=== PATIENT | male | born 1945 | race Caucasian/White ===

== ENCOUNTER → 2019-10-16 | Outpatient (CLI) | payer MEDICARE ==
[~2019-10-16] MED LIST: ASPIR 8181 MG PO; ASPIRIN ENTERI325 MG PO; DIGOXIN125 MCG PO; FUROSEMIDE40 MG PO; LEVAQUIN500 MG PO; LEVEMIR100 UNIT/1 INJ; LEVOCETIRIZINE D5 MG PO; LIPITOR40 MG PO; LISINOPRIL20 MG PO; METOPROLOL TART25 MG PO; NOVOLOG100 UNITS/ INJ; PREVACID 24HR15 MG PO
--- NOTE | 2019-10-16 13:32 | Diagnostic Imaging Report ---
EXAMINATION: SP LUMBAR AP LATERAL 2-3VWS, THORACIC SPINE 2VW INDICATION: Back pain COMPARISON: None FINDINGS: AP and lateral views of the lumbar and thoracic spine were obtained. Thoracic spine: No acute fracture. Vertebral body heights are well-maintained. Alignment is anatomic. Mild diffuse osteopenia. Mild multilevel degenerative changes with disc space narrowing and osteophyte formation. Postoperative findings of prior CABG. Left chest AICD leads partially visualized. Sternotomy wires intact. Lumbar spine: No acute fracture. Vertebral body heights are maintained. Alignment is anatomic. Mild diffuse osteopenia. Moderate multilevel degenerative changes with disc space narrowing and bulky osteophyte formation most notably at L1 to, L3-4, and L4-5. Diffuse atherosclerotic arterial calcifications. IMPRESSION: No compression fracture of the thoracic or lumbar spine. Alignment is anatomic. Mild degenerative changes of the thoracic spine and moderate degenerative changes of the lumbar spine. Mild diffuse osteopenia. Signed by: Lanre Smith MD on 10/16/2019 1:28 PM
== END ==
LOC: RAD 12:23
PROVIDERS: ATTEND Internal Medicine
DX: M54.5 Low back pain (principal); M54.6 Pain in thoracic spine
CPT/HCPCS: 72070; 72100

== ENCOUNTER → 2020-03-03 | Day surgery (SDC) | payer MEDICARE ==
[2020-02-27 09:05] LABS: BASOPHILS # (AUTO) 0.1 (0.0-0.1); EOSINOPHILS # (AUTO) 0.2 (0.0-0.4); EOSINOPHILS % 1.8 % (0.0-6.0); HEMATOCRIT 51.1 % (38.2-49.6); HEMOGLOBIN 16.8 g/dL (14.0-18.0); LYMPHOCYTES # (AUTO) 1.9 (1.0-3.2); LYMPHOCYTES % 21.6 % (18.0-39.1); MEAN CORPUSCULAR HEMOGLOBIN 33.3 pg (28-32); MEAN CORPUSCULAR HGB CONC 32.9 g/dL (31-35); MEAN CORPUSCULAR VOLUME 101.4 fL (81-99); MONOCYTES # (AUTO) 0.9 (0.2-0.8); MONOCYTES % 10.2 % (4.4-11.3); NEUTROPHILS # (AUTO) 5.7 (2.1-6.9); NEUTROPHILS % 65.1 % (38.7-80.0); PLATELET COUNT 240 x10e3/uL (140-360); RED BLOOD COUNT 5.04 x10e6/uL (4.3-5.7); RED CELL DISTRIBUTION WIDTH 13.5 % (11.7-14.4)
[~2020-03-03] MED LIST changes: +CLOPIDOGREL75 MG PO; +FENTANYL CITRATE/PF 100MCG/2 ML INJ ONE; +HUMALOG100 UNIT/3 SC; +LIDOCAINE HCL 2% LOCAL INJ 5 ML SDV VIAL INJ ONE; +METOCLOPRAMIDE HCL 10 MG/2ML VIAL ONE; +MIDAZOLAM HCL 2 MG/2 ML VIAL ONE; +MULTI-VITAMIN1 EACH PO; +POTASSIUM CHLO10 ME1 PO; +PROPOFOL IV EMULSION 10 MG/ML 20 ML VIAL ONE; +SPIRONOLACTONE25 MG PO; +TRESIBA100 UNIT/1 SC
[2020-03-03 09:55] VITALS: BP 126/88
== END | disposition home or self-care (01) ==
LOC: OR 06:13
PROVIDERS: ATTEND Internal Medicine Gastroenterology
DX: K22.70 Barrett's esophagus without dysplasia (principal); K31.7 Polyp of stomach and duodenum; K29.50 Unspecified chronic gastritis without bleeding; K21.9 Gastro-esophageal reflux disease without esophagitis; K22.8 Other specified diseases of esophagus; K31.89 Other diseases of stomach and duodenum; K44.9 Diaphragmatic hernia without obstruction or gangrene; E11.9 Type 2 diabetes mellitus without complications; I25.810 Atherosclerosis of coronary artery bypass graft(s) without angina pectoris; I25.2 Old myocardial infarction; I11.0 Hypertensive heart disease with heart failure; I50.9 Heart failure, unspecified; Z01.810 Encounter for preprocedural cardiovascular examination; Z01.812 Encounter for preprocedural laboratory examination; Z20.828 Contact with and (suspected) exposure to other viral communicable diseases; Z79.02 Long term (current) use of antithrombotics/antiplatelets; Z79.4 Long term (current) use of insulin; Z68.31 Body mass index [BMI] 31.0-31.9, adult; Z95.1 Presence of aortocoronary bypass graft; Z95.810 Presence of automatic (implantable) cardiac defibrillator; Z87.891 Personal history of nicotine dependence
CPT/HCPCS: 36415 ×2; 43239; 43450; 82948; 85025; 93005; J2001; J2250; J2704; J2765; J3010; U0002; 43235